=== PATIENT | female | born 1990 ===

== ENCOUNTER 2019-02-07 08:47 | Outpatient (CLI) | payer OTHER | END 2019-02-07 08:48 | disposition home or self-care (01) | LOC: C.CTH 08:47 ==

== ENCOUNTER 2019-03-05 07:51 | Outpatient (CLI) | payer OTHER | END 2019-03-05 07:52 | disposition home or self-care (01) | LOC: C.USIC 07:51 | DX: E04.2 Nontoxic multinodular goiter (principal) ==